=== PATIENT | male | born 1970 | race Caucasian/White ===

== ENCOUNTER 2017-06-04 15:21 | Emergency (ER) | payer MEDICAID, OTHER ==
[~2017-06-04] VITALS: Ht 175.3 cm; Wt 85.3 kg
--- NOTE | 2017-06-04 15:30 | NUR ---
PATIENT PRESENTS TO ER C/O SUICIDAL IDEATION. STATING HE WILL RUN INTO TRAFFIC. PATIENT IS A/OX 4. BREATHING EVEN AND UNLABORED ON ROOM AIR. NO SOB. VITALS STABLE. SAFETY AND COMFORT MEASURES IN PLACE. AWAITING MD ORDERS.
--- NOTE | 2017-06-04 16:28 | NUR ---
CALLED [facility] FOR PSYCH EVAL
[2017-06-04 16:53] LABS: BASOPHILS % (AUTO) 0.6 % (0.0-2.0); EOSINOPHILS # (AUTO) 0.2 /CMM (0.0-0.7); EOSINOPHILS % (AUTO) 2.9 % (0.0-6.0); HEMATOCRIT 44 % (39-51); HEMOGLOBIN 15.3 g/dL (13.5-17.5); LYMPHOCYTES # (AUTO) 1.9 /CMM (0.8-4.8); LYMPHOCYTES % (AUTO) 30.1 % (20.0-44.0); MEAN CORPUSCULAR HEMOGLOBIN 34 PG (26.0-33.0); MEAN CORPUSCULAR HGB CONC 35 g/dl (31.0-36.0); MEAN CORPUSCULAR VOLUME 98 fL (80-96); MONOCYTES # (AUTO) 0.4 /CMM (0.1-1.30); MONOCYTES % (AUTO) 6.2 % (2.0-12.0); NEUTROPHILS # (AUTO) 3.7 /CMM (1.8-8.9); NEUTROPHILS % (AUTO) 60.2 % (43.0-81.0); PLATELET COUNT (AUTO) 190 /CMM (150-450); RDW COEFFICIENT OF VARIATION 14.3 (11.5-15.0); RED BLOOD CELL COUNT(AUTO) 4.46 MIL/uL (4.5-6.0); WHITE BLOOD COUNT (AUTO) 6.2 K/uL (4.3-11.0)
[2017-06-04 17:08] LABS: CALCIUM, SERUM 8.2 mg/dL (8.5-10.1); CREATININE 0.6 mg/dL (0.6-1.3); POTASSIUM 3.3 mmol/L (3.5-5.1)
[2017-06-04 17:17] LABS: ALBUMIN 3.6 g/dL (3.4-5.0); BILIRUBIN,DIRECT 0.1 mg/dL (0.0-0.2); BILIRUBIN,TOTAL 0.4 mg/dL (0.2-1.0); SALICYLATE 5.5 mg/dL (2.8-20.0); TOTAL PROTEIN, SERUM 6.9 g/dL (6.4-8.2)
--- NOTE | 2017-06-04 20:31 | NUR ---
CALLED SO CALL [facility] FOR AN UPDATE, LENCHO NOTIFIED ME HE WILL GIVE ME CALL BACK ONCE PACKET IS REVIEWED
--- NOTE | 2017-06-04 21:10 | NUR ---
PET TEAM AT BEDSIDE FOR PSYCH EVAL.
--- NOTE | 2017-06-04 21:44 | NUR ---
URINE OBTAINED AND SENT TO LAB.
[2017-06-04 22:32] LABS: APPEARANCE,URINE CLEAR (CLEAR); BILIRUBIN,URINE NEGATIVE (NEGATIVE); BLOOD, URINE NEGATIVE Ery/uL (NEGATIVE); COLOR,URINE YELLOW (YELLOW); KETONES,URINE NEGATIVE (NEGATIVE); LEUKOCYTE ESTERASE ,URINE NEGATIVE (NEGATIVE); NITRITE, URINE NEGATIVE (NEGATIVE); PROTEIN,URINE NEGATIVE (NEGATIVE); UGLUCOSE NEGATIVE (NEGATIVE); UROBILINOGEN,URINE 0.2 EU/dL (0.2)
--- NOTE | 2017-06-05 05:38 | NUR ---
PT RESTING IN GURNEY. A/OX4 PT VITAL SIGNS STABLE. WILL CONT TO MONITOR PT.
--- NOTE | 2017-06-05 13:24 | NUR ---
[facility] TRANSPORT BACK 1400
--- NOTE | 2017-06-05 13:25 | NUR ---
[facility] ACCEPTING THE PT. DR JORDAN IS THE ACCEPTING MD. NUMBER FOR REPORT [phone]
--- NOTE | 2017-06-05 14:17 | NUR ---
ASSUMED CARE OF PT AT THIS TIME. REPORT ALREDY GIVEN TO LALY/RN AT [facility]. DENIES ANY SX'S AT THIS TIME. RESP EVEN AND UNLABORED.
[2017-06-05 14:21] VITALS: BP 137/75
== END 2017-06-05 14:23 ==
LOC: ER 15:22 → EDBD 15:22 → ER 06-05 14:23
DX: F32.9 Major depressive disorder, single episode, unspecified (principal)
CPT/HCPCS: 36415; 80048; 80076; 80305; 80329; 81001; 85025; 99285; A4606; G0480 ×2; Z7610; 81000-TC